=== PATIENT | female | born 1945 | race African-American/Black ===

== ENCOUNTER 2017-01-06 07:31 | Emergency (ER) | payer MEDICARE ==
[2017-01-06 07:16] LABS: BASOPHILS 0 %; EOSINOPHILS 0.2 %; EOSINOPHILS ABSOLUTE 0.01 10/3/uL (0.0-0.53); HEMATOCRIT 37.6 % (36.0-48.0); HEMOGLOBIN 12.8 g/dL (12.0-16.0); IMMATURE GRANULOCYTES 0.2 %; IMMATURE GRANULOCYTES ABSOLUTE 0.01 10/3/uL (0.0-0.11); LYMPHOCYTES 35.4 %; LYMPHOCYTES ABSOLUTE 2.03 10/3/uL (0.67-4.30); MEAN CORPUSCULAR HEMOGLOB 31.1 pg (26.0-34.0); MEAN CORPUSCULAR VOLUME 91.3 fL (80-100); MEAN PLATELET VOLUME 8.9 fL (9.2-13.0); MONOCYTES 10.8 %; MONOCYTES ABSOLUTE 0.62 10/3/uL (0.21-1.20); NEUTROPHILS 53.4 %; NEUTROPHILS ABSOLUTE 3.07 10/3/uL (2.02-8.40); PLATELET COUNT 284 10/3/uL (150-400); RBC DISTRIBUTION WIDTH 14.6 % (12.0-16.0); RED CELL COUNT 4.12 10/6/uL (4.0-5.6)
[2017-01-06 07:17] LABS: ER CBC TAT 0 Hrs 09 Mins; WHITE BLOOD CELLS 5.7 10/3/uL (4.5-10.5)
[2017-01-06 07:18] LABS: MANUAL DIFF NO %
[2017-01-06 07:29] LABS: INFLUENZA A SCREEN NEGATIVE (NEGATIVE); INFLUENZA B SCREEN NEGATIVE (NEGATIVE)
[2017-01-06 07:30] LABS: BUN (BLOOD UREA NITROGEN) 8 MG/DL (6-23); CALCIUM, SERUM 8.7 MG/DL (8.5-10.4); CHEST PAIN PROFILE TAT 0 Hrs 22 Mins; CHLORIDE, SERUM 103 MMOL/L (96-112); CO2 (CARBON DIOXIDE) 26 MMOL/L (24-34); CREATININE 0.54 MG/DL (0.55-1.02); GFR AFRICAN AMERICAN 109 ML/MIN (>=60); GFR NON AFRICAN AMERICAN 94 ML/MIN (>=60); GLUCOSE, SERUM 113 MG/DL (60-99); POTASSIUM, SERUM 3.9 MMOL/L (3.5-5.3); SODIUM, SERUM 138 MMOL/L (135-148); TROPONIN I <0.02 NG/ML (<0.05)
[~2017-01-06 07:31] MED LIST: APRES50 PO; ASAB PO; BENZONATATE PO; BONE SUPPLEMENT PO; CALTRAT600 PO; CARTIA XT240 MG/24 PO; CARTIA XT300 MG/24 PO; CAT1 PO; CAT2 PO; CEFT5 PO; CENTRUM TAB1 TAB PO; COREG25 PO; COUMADIN6 MG; COUMADIN6 MG PO; COZAAR100 MG PO; DILT-XR240 MG PO; FLONASE NAS; GLUCOPHAGE1000 MG PO; HCTZ12.5 PO; JANTOVEN6 MG PO; KLOR-CON M2020 MEQ PO; L20 PO; LEVAQUIN750 MG PO; LOVENOX60 SC; MAG6464 MG PO; MAGNESIUM PO; MAGOX4 PO; METFORMIN PO; MULTIPLE VIT PO; NITROSTAT0.4 MG SL; NORCO1 TA1 PO; PLAVIX PO; PRAVAC PO; PRAVACHOL40 MG PO; PRILO PO; PROAIR HFA INH; SENTAB PO; SINGULAIR1 PO; STERAPDS12; SYMBICORT 160/41 INH INH; TESS PO; VIB100 PO; VITAMIN D1000 UNI1 PO; VITAMIN D31000 UNIT PO; [UNRECOGNIZED DRUG - OTHER] PO
[2017-01-06 07:32] LABS: LACTATE 0.6 MMOL/L (0.3-2.4)
[2017-01-06 07:42] LABS: INTERNATIONAL NORMAL RATI 3.6 UNITS (-); PARTIAL THROMBO TIME 45.9 SEC (22.5-37.2); PROTIME (NOT ORD) 35.3 SEC (12.0-14.5)
[2017-03-06] MEDS ORDERED: L20 PO (10:29)
[2017-03-06] MEDS ORDERED: CALTRA600D PO (10:29)
[2017-03-06] MEDS ORDERED: MULTIPLE VIT PO (10:30)
[2017-03-06] MEDS ORDERED: BETAPACE80 PO (10:30)
[2017-03-06] MEDS ORDERED: KLOR-CON M1010 MEQ PO (10:30)
[2017-03-06] MEDS ORDERED: ELIQUIS 5 MG TAB5 MG PO (10:34)
[2017-07-03] MEDS ORDERED: PROAIR HFA INH (22:23)
[2017-07-03] MEDS ORDERED: CAT2 PO (22:23)
[2017-07-03] MEDS ORDERED: CARDIZEM LA300 MG PO (22:24)
[2017-07-03] MEDS ORDERED: APRES50 PO (22:24)
[2017-07-03] MEDS ORDERED: MAG6464 MG PO (22:24)
[2017-07-03] MEDS ORDERED: GLUCOPHAGE1000 MG PO (22:26)
[2017-07-03] MEDS ORDERED: SINGULAIR1 PO (22:27)
[2017-07-03] MEDS ORDERED: NITROSTAT0.4 MG SL (22:27)
[2017-07-03] MEDS ORDERED: VITAMIN D31000 UNIT PO (22:28)
[2017-07-03] MEDS ORDERED: ELIQUIS 5 MG TAB5 MG PO (22:28)
[2017-07-03] MEDS ORDERED: PRILO PO (22:28)
[2017-07-03] MEDS ORDERED: PRAVACHOL40 MG PO (22:28)
[2017-07-03] MEDS ORDERED: KDUR10 PO (22:29)
[2017-07-03] MEDS ORDERED: DIOVAN320 MG PO (22:29)
[2017-07-03] MEDS ORDERED: COREG25 PO (22:29)
[2017-07-03] MEDS ORDERED: BETAPACE80 PO (22:30)
[2017-07-03] MEDS ORDERED: L20 PO (22:30)
[2017-07-04] MEDS ORDERED: ALBUTEROL0.083 % INH (01:00)
[2017-07-06] MEDS ORDERED: CARDCD180 PO (17:29)
== END 2017-01-06 10:25 | disposition home or self-care (01) ==
LOC: ER 07:31
PROVIDERS: Nurse Practitioner
DX: J45.909 Unspecified asthma, uncomplicated (principal); I50.9 Heart failure, unspecified; R79.1 Abnormal coagulation profile; I25.2 Old myocardial infarction; Z95.1 Presence of aortocoronary bypass graft; Z98.61 Coronary angioplasty status; I48.91 Unspecified atrial fibrillation; K21.9 Gastro-esophageal reflux disease without esophagitis; E11.9 Type 2 diabetes mellitus without complications; Z79.01 Long term (current) use of anticoagulants; Z79.899 Other long term (current) drug therapy
CPT/HCPCS: 71010; 80048; 83605; 83735; 83880; 84484; 85025; 85610; 85730; 87040; 87804; 93005; 96374; 99285; A9270-GY; J2930

== ENCOUNTER 2017-02-04 08:35 | Emergency (ER) | payer MEDICARE ==
[2017-02-04 07:07] LABS: BASOPHILS 0.2 %; BASOPHILS ABSOLUTE 0.01 10/3/uL (0.0-0.16); EOSINOPHILS 0.2 %; EOSINOPHILS ABSOLUTE 0.01 10/3/uL (0.0-0.53); ER CBC TAT 0 Hrs 03 Mins; HEMATOCRIT 34.8 % (36.0-48.0); HEMOGLOBIN 11.8 g/dL (12.0-16.0); IMMATURE GRANULOCYTES 0.2 %; IMMATURE GRANULOCYTES ABSOLUTE 0.01 10/3/uL (0.0-0.11); LYMPHOCYTES 40.6 %; LYMPHOCYTES ABSOLUTE 1.79 10/3/uL (0.67-4.30); MEAN CORPUS HGB CONC 33.9 g/dL (32.0-36.0); MEAN CORPUSCULAR HEMOGLOB 30.7 pg (26.0-34.0); MEAN CORPUSCULAR VOLUME 90.6 fL (80-100); MEAN PLATELET VOLUME 8.5 fL (9.2-13.0); MONOCYTES 9.8 %; MONOCYTES ABSOLUTE 0.43 10/3/uL (0.21-1.20); NEUTROPHILS ABSOLUTE 2.16 10/3/uL (2.02-8.40); PLATELET COUNT 253 10/3/uL (150-400); RBC DISTRIBUTION WIDTH 14.9 % (12.0-16.0); RED CELL COUNT 3.84 10/6/uL (4.0-5.6); WHITE BLOOD CELLS 4.4 10/3/uL (4.5-10.5)
[2017-02-04 07:12] LABS: MANUAL DIFF NO %
[2017-02-04 07:16] LABS: PARTIAL THROMBO TIME 46.9 SEC (22.5-37.2); PROTIME (NOT ORD) 38.8 SEC (12.0-14.5)
[2017-02-04 07:28] LABS: BUN (BLOOD UREA NITROGEN) 10 MG/DL (6-23); CALCIUM, SERUM 8.6 MG/DL (8.5-10.4); CHEST PAIN PROFILE TAT 0 Hrs 24 Mins; CHLORIDE, SERUM 106 MMOL/L (96-112); CO2 (CARBON DIOXIDE) 26 MMOL/L (24-34); CREATININE 0.51 MG/DL (0.55-1.02); GFR AFRICAN AMERICAN 111 ML/MIN (>=60); GFR NON AFRICAN AMERICAN 95 ML/MIN (>=60); POTASSIUM, SERUM 3.9 MMOL/L (3.5-5.3); SODIUM, SERUM 142 MMOL/L (135-148); TROPONIN I <0.02 NG/ML (<0.05)
[2017-02-04 07:29] LABS: GLUCOSE, SERUM 120 MG/DL (60-99)
[2017-03-06] MEDS ORDERED: L20 PO (10:29)
[2017-03-06] MEDS ORDERED: CALTRA600D PO (10:29)
[2017-03-06] MEDS ORDERED: BETAPACE80 PO (10:30)
[2017-03-06] MEDS ORDERED: KLOR-CON M1010 MEQ PO (10:30)
[2017-03-06] MEDS ORDERED: MULTIPLE VIT PO (10:30)
[2017-03-06] MEDS ORDERED: ELIQUIS 5 MG TAB5 MG PO (10:34)
[2017-07-03] MEDS ORDERED: CAT2 PO (22:23)
[2017-07-03] MEDS ORDERED: PROAIR HFA INH (22:23)
[2017-07-03] MEDS ORDERED: CARDIZEM LA300 MG PO (22:24)
[2017-07-03] MEDS ORDERED: MAG6464 MG PO (22:24)
[2017-07-03] MEDS ORDERED: APRES50 PO (22:24)
[2017-07-03] MEDS ORDERED: GLUCOPHAGE1000 MG PO (22:26)
[2017-07-03] MEDS ORDERED: SINGULAIR1 PO (22:27)
[2017-07-03] MEDS ORDERED: NITROSTAT0.4 MG SL (22:27)
[2017-07-03] MEDS ORDERED: PRAVACHOL40 MG PO (22:28)
[2017-07-03] MEDS ORDERED: PRILO PO (22:28)
[2017-07-03] MEDS ORDERED: VITAMIN D31000 UNIT PO (22:28)
[2017-07-03] MEDS ORDERED: ELIQUIS 5 MG TAB5 MG PO (22:28)
[2017-07-03] MEDS ORDERED: KDUR10 PO (22:29)
[2017-07-03] MEDS ORDERED: DIOVAN320 MG PO (22:29)
[2017-07-03] MEDS ORDERED: COREG25 PO (22:29)
[2017-07-03] MEDS ORDERED: BETAPACE80 PO (22:30)
[2017-07-03] MEDS ORDERED: L20 PO (22:30)
[2017-07-04] MEDS ORDERED: ALBUTEROL0.083 % INH (01:00)
[2017-07-06] MEDS ORDERED: CARDCD180 PO (17:29)
== END 2017-02-04 09:45 | disposition home or self-care (01) ==
LOC: ER 08:35
PROVIDERS: Specialist
DX: J81.1 Chronic pulmonary edema (principal); J45.909 Unspecified asthma, uncomplicated; I25.2 Old myocardial infarction; I11.0 Hypertensive heart disease with heart failure; I50.9 Heart failure, unspecified; I48.91 Unspecified atrial fibrillation; Z79.899 Other long term (current) drug therapy; Z79.01 Long term (current) use of anticoagulants
CPT/HCPCS: 71010; 80048; 83735; 83880; 84484; 85025; 85610; 85730; 96365; 96375; 99285